=== PATIENT | male | born 2005 | race Two or more races ===

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

== ENCOUNTER 2025-04-07 23:07 | Emergency (ER) | payer MEDICAID, SELFPAY ==
--- NOTE | ~2025-04-07 | XR_ITS ---
CLINICAL HISTORY: chest pain 1 view chest x-ray Comparison: None provided Findings: Normal size heart. No consolidation, significant pleural effusion or pneumothorax. Air seen under left hemidiaphragm. No acute fracture. IMPRESSION: 1. No acute findings in the chest. 2. Air under left hemidiaphragm could be in the stomach but if clinically pneumoperitoneum is suspected follow-up supine and upright KUB or CT abdomen and pelvis should be obtained. This document has been electronically signed by: Brisa Ding MD on 04/07/2025 23:54:39
--- NOTE | 2025-04-07 23:13 | ECG_ITS ---
Test Reason : CP Blood Pressure : */* mmHG Vent. Rate : 69 BPM Atrial Rate : 69 BPM P-R Int : 126 ms QRS Dur : 100 ms QT Int : 366 ms P-R-T Axes : 63 88 59 degrees QTcB Int : 392 ms Normal sinus rhythm Normal ECG No previous ECGs available Referred By: Generic ED Physician Electronically Signed By: SAMANTHA ABARCA MD
[2025-04-07 23:14] VITALS: BP 124/66; PULSE 70; RESP 18; TEMP 36.5; O2SAT 98; BMI 24.1
[2025-04-07 23:24] LABS: MANUAL DIFF FLAG NO
[2025-04-07 23:36] LABS: Hematocrit 42.4 % (42.0-52.0); Hemoglobin 14.9 g/dl (14.0-18.0); Imm Gran Abs Auto 0.01 X10*3/uL (0.00-0.03); Imm Gran Pct Auto 0.1 % (0.0-0.4); Lymphocytes Absolute Auto 2.2 X10*3/uL (1.2-4.9); Mean Corpuscular HGB Conc 35.1 g/dl (31.0-36.0); Mean Corpuscular Hemoglobin 29.9 pg (27.0-33.0); Mean Corpuscular Volume 85.0 fL (80.0-98.0); NRBC Abs Auto 0.000 X10*3/uL (0.0-0.012); NRBC Pct Auto 0.0 /100WBC (0.0-0.2); Platelet Count 237 X10*3/uL (160-400); Red Blood Count 4.99 X10*6/uL (4.60-5.80); White Blood Count 8.6 X10*3/uL (4.8-10.8)
--- NOTE | 2025-04-07 23:38 | ED.CHESTPAIN ---
HPI - Chest Pain General Chief Complaint: Chest Pain Stated Complaint: chest pain Time Seen by Provider: 04/07/25 23:38 Source: patient Mode of arrival: ambulatory Limitations: no limitations History of Present Illness ED Provider: Dr. 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 Describes a sharp stabbing pain that is worse with deep breaths or movement. Admits to a slight nonproductive cough. No fever. His brother is sick with similar symptoms at home. Denies sputum production, shortness of breath, nausea, vomiting, lower extremity edema or pain, family history of early onset heart disease or sudden cardiac . 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 Related Data Allergies Allergy/AdvReac Type Severity Reaction Status Date / Time No Known Allergies Allergy Verified 04/07/25 23:17 Review of Systems Review of Systems: As per HPI, full review of systems performed and negative but for the above mentioned pertinent positives and negatives. [facility] Social History Social History Alcohol intake: never Smoked in Last 30 Days: No Use of substances other than those prescribed or required for medical reasons: No Advance Directives: No Advance Directives Information Provided: No Do you have a plan to hurt others: No Plan Physical Exam Exam: Exam: GENERAL: Anxious, nontoxic appearing. SKIN: Normal skin color for ethnicity, warm, dry, intact, no rashes noted. HEENT: Normocephalic, atraumatic, no stridor, posterior oropharynx nonerythematous, dentition intact, EOMI. NECK: Soft, supple, full ROM, midline structures nontender, no step-offs, no deformities, no lymphadenopathy. CHEST: Heart regular tachycardia, no murmurs, symmetric chest rise and fall, no crepitus. PULMONARY: Clear to auscultation bilaterally, no labored breathing, no wheezes/rhales/ rhonchi. ABDOMINAL: Soft, nondistended, nontender, positive bowel sounds in all quadrants. : Deferred. MUSCULOSKELETAL: Normal tone, full range of motion, no deformities, no peripheral edema. NEURO: Alert and oriented x3, CN II through XII intact, equal strength and sensation bilateral upper and lower extremities, no focal neurologic deficits. PSYCHIATRIC: Anxious affect, fluid speech, good eye contact and appropriate demeanor. Vital Signs: Vital Signs: Last Vital Signs Temp 98.3 F 04/08/25 03:07 Pulse 73 04/08/25 03:07 Resp 20 04/08/25 03:07 BP 102/46 L 04/08/25 03:07 Pulse Ox 99 04/08/25 03:07 O2 Del Method Room Air 04/08/25 03:07 BMI result Body Mass Index 24.1 Medications Administered Discontinued Medications Generic Name Dose Route Start Last Admin Trade Name Freq PRN Reason Stop Dose Admin Lactated Ringer's 1,000 mls @ 999 mls/hr 04/08/25 00:48 04/08/25 02:15 Lr IV 04/08/25 01:48 Infused .Q1H1M ONE Infusion Ketorolac Tromethamine 15 mg 04/08/25 00:48 04/08/25 01:06 Ketorolac Tromethamine 15 Mg/Ml Vial IVPUSH 04/08/25 00:49 15 mg ONCE ONE Administration Medical Decision Making Medical Decision Making [facility] Narrative: Patient presents today with a chief complaint of chest pain. Differential diagnosis includes, but is not limited to, acute coronary syndrome, musculoskeletal pain, pneumothorax, GERD, pleurisy, pulmonary embolism, dissection, among others. I will order EKG, chest x-ray, the laboratory workup including cardiac enzymes to further evaluate for etiology. Patient is low risk Wells criteria. We will add on a D-dimer to evaluate for pulmonary embolism. Otherwise, chest x-ray, EKG and blood work are all reassuring. Patient medicated with Toradol and fluids. Suspect pleurisy in the setting of a developing URI. D-dimer is negative. Patient feeling improved after Toradol and fluids. Using shared decision making, plan for discharge home to follow-up with primary care and/or specialist. Patient understands and agrees with plan for discharge. Discharged home in stable condition. Differential Diagnosis Differential Diagnoses: The differential diagnosis associated with the presentation includes (As above) Admission/Observation Consideration of admission/observation: Escalation of care including admission/observation considered Lab Data MDM Lab Attestation statement: I reviewed the patient's lab results. 04/07/25:20 04/07/25 23:20 Labs: Lab Results 04/07/25 04/08/25 Range/Units 23:20 01:05 WBC 8.6 (4.8-10.8) X10*3/uL RBC 4.99 (4.60-5.80) X10*6/uL Hgb 14.9 (14.0-18.0) g/dl Hct 42.4 (42.0-52.0) % MCV 85.0 (80.0-98.0) fL MCH 29.9 (27.0-33.0) pg MCHC 35.1 (31.0-36.0) g/dl RDW 11.7 (11.0-16.0) % Plt Count 237 (160-400) X10*3/uL MPV 9.9 (9.4-12.4) fL Immature Gran % (Auto) 0.1 (0.0-0.4) % Neut % (Auto) 63.3 (45-73) % Lymph % (Auto) 25.1 (20-40) % Carroll % (Auto) 10.3 (2-11) % Eos % (Auto) 0.7 (0-4) % Baso % (Auto) 0.5 (0-2) % Lymph # (Auto) 2.2 (1.2-4.9) X10*3/uL Carroll # (Auto) 0.9 (0.1-1.2) X10*3/uL Eos # (Auto) 0.1 (0.0-0.4) X10*3/uL Baso # (Auto) 0.0 (0.0-0.2) X10*3/uL Abs Immat Gran (auto) 0.01 (0.00-0.03) X10*3/uL Absolute Neuts (auto) 5.5 (2.0-8.3) x10*3/uL Absolute Nucleated RBC 0.000 (0.0-0.012) X10*3/uL Nucleated RBC % (auto) 0.0 (0.0-0.2) /100WBC D-Dimer High Sensitivty < 150 NG/ML Sodium 140 (135-145) mmol/L Potassium 3.6 (3.3-5.1) mmol/L Chloride 103 (96-108) mmol/L Carbon Dioxide 27 (22-29) mmol/L Anion Gap 14 (12-20) BUN 12 (9-16) mg/dL Creatinine 1.18 (0.5-1.4) mg/dL Estim Creat Clear Calc 106.3 Estimated GFR > 60 Random Glucose 103 (60-115) mg/dL Calcium 9.6 (8.4-10.2) mg/dL Total Bilirubin 0.7 (0.0-1.0) mg/dL AST 30 (5-37) U/L ALT 35 (0-40) U/L Alkaline Phosphatase 103 (39-117) U/L Troponin I High Sens < 2.7 (<3.5-35.0) ng/L Total Protein 8.3 H (6.5-8.0) g/dL Albumin 5.1 H (3.5-5.0) g/dL COVID-19 (MICHELLE) Negative (Negative) COVID-19 Clin Com See Note Influenza Type A (ANJEL) Negative (Negative) Influenza Type B (ANJEL) Negative (Negative) Influenza A & B Note See Note Independent Interpretation I performed an independent interpretation of an: EKG and Plain X-Ray Interpretation: Chest x-ray interpretation My independent interpretation of the ECG reveals normal sinus rhythm with rate of 69, normal axis, normal intervals, no ST elevations or depressions to suggest ischemic changes, no previous for comparison Radiology Impression Discussion of test interpretation with radiology: I have reviewed the radiologist's reading. Independent Historian Clinical information obtained from an independent historian. History obtained from or confirmed by: Friend Prescription Management I considered prescription management with: Pain Medication Chronic Conditions Patient?s care impacted by: Other (Congenital heart defect) Discharge Plan Discharge Clinical Impression: Pleurisy Patient Disposition: Home, Self-Care Instructions: Pleurisy (ED) Additional Instructions: Your blood work today and EKG have been reassuring. Your chest x-ray does not show evidence of pneumonia. Your pain is consistent with something called pleurisy which is painful movement of the lungs. Usually this happens if you are fighting an infection such as of viral upper respiratory infection, likely common cold. Use Motrin for pain as needed. You may take 600 mg every 8 hours. Return to the ER with any new or worsening symptoms including: Worsening pain despite medication, fevers greater than 100? for more than 5 days in a row, any new symptom that concerns you. Call 911 with any medical emergency. Interventions: ED Discharge Assessment Last Done: 04/08/25 03:07 Discharge Date/Time: 04/08/25 03:08 Print Language: [place]
[2025-04-07 23:39] LABS: Alanine Aminotransferase 35 U/L (0-40); Albumin Level 5.1 g/dL (3.5-5.0); Alkaline Phosphatase 103 U/L (39-117); Anion Gap 14 (12-20); Aspartate Amino Transferase 30 U/L (5-37); Blood Urea Nitrogen 12 mg/dL (9-16); Calcium 9.6 mg/dL (8.4-10.2); Carbon Dioxide 27 mmol/L (22-29); Chloride 103 mmol/L (96-108); Creatinine Clr Calc Pharmacy 106.3; Estimated Glomerular Filt Rate > 60; Potassium 3.6 mmol/L (3.3-5.1); Sodium 140 mmol/L (135-145); Total Protein 8.3 g/dL (6.5-8.0)
[2025-04-07 23:47] LABS: Troponin-I High Sensitivity < 2.7 ng/L (<3.5-35.0)
[2025-04-07 23:56] VITALS: BP 130/76; PULSE 69; RESP 18; O2SAT 98
[2025-04-08] VITALS: PULSE 78; RESP 26
--- NOTE | 2025-04-08 00:08 | PC.NURSE ---
PT arrived via triage he was found Aox4 in the sitting position on his facility bed in obvious distress. Pt reported substernal chest pain radiating to the left chest and shoulder/neck area intermittently for the past day. PT presented with hyperventilation and 10/10 chest pain. 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
--- OUTSIDE RECORDS SUMMARY | 2025-04-08 00:16 | XMS_ITS | Clinical Summary ---
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 Name Role Phone Marilee Holden MD Primary Care Provider [phone] Marilee Holden MD Unavailable [phone] Social History Tobacco Use Types Packs/Day Years Used Date Smoking Tobacco: Never Assessed Sex and Gender Information Value Date Recorded Sex Assigned at Not on file Legal Sex Male 6:42 PM EDT Gender Identity Not on file Sexual Orientation Not on file Plan of Treatment Not on file Care Teams Die Casting Machine Operator Relationship Specialty Start Date End Date Marilee Holden MD [address] [place] [id number] PCP - General 06/17/06 Marilee Holden MD [address] [place] [id number] PCP - Insurance PCP 06/17/06
[2025-04-08] MEDS: Lactated Ringers 1,000 ML 999 ML IV (01:07)
[2025-04-08 01:36] LABS: D Dimer High Sensitivity < 150 NG/ML
[2025-04-08 01:55] LABS: IDNOW Serial# 6674DD1D
[2025-04-08 01:56] LABS: COVID-19 Test Negative (Negative); IDNOW Serial# 55D5AD1C; Influenza B2 Negative (Negative)
[2025-04-08 02:06] VITALS: BP 102/46; PULSE 73; RESP 20; TEMP 36.8; O2SAT 99
[2025-04-08 03:07] VITALS: BP 102/46; PULSE 73; RESP 20; TEMP 36.8; O2SAT 99
== END 2025-04-08 03:08 | disposition home or self-care (01) ==
PROVIDERS: Emergency Provider Emergency Medicine
DX: R09.1 Pleurisy (principal); R07.9 Chest pain, unspecified; Z03.818 Encounter for observation for suspected exposure to other biological agents ruled out
CPT/HCPCS: 36415; 71045; 80053; 84484; 85025; 85379; 87502; 87635; 93005; 96361; 96374; 99284; 99285; J1885; J7120

== ENCOUNTER → 2025-04-07 23:13 | Outpatient (BNV) | payer MEDICAID, SELFPAY | PROVIDERS: Emergency Provider Emergency Medicine; Visit Provider Internal Medicine Cardiovascular Disease | DX: R94.31 Abnormal electrocardiogram [ECG] [EKG] (principal); R07.89 Other chest pain | CPT/HCPCS: 93010 ==

== ENCOUNTER → 2025-04-07 23:20 | Outpatient (BNV) | payer MEDICAID, SELFPAY | PROVIDERS: Emergency Provider Emergency Medicine; Visit Provider Specialist | DX: R07.9 Chest pain, unspecified (principal) | CPT/HCPCS: 71045 ==